=== PATIENT | male | born 1970 | race Caucasian/White ===

== ENCOUNTER → 2016-12-05 | Outpatient (CLI) | payer BC ==
[~2016-12-05] MED LIST: ACET-1256 PO; AMT50 PO; AZEL30SP NAE; CETI10TA10 PO; CNC/18 PO; IBUP-1050 PO; LEVO-371 PO; LISI-791 PO; LISI40TA PO; MULTTAB58 PO; PANT40TA PO; SUMA6INJ SC; VENL-273 PO
== END | disposition home or self-care (01) ==
LOC: C.LAB1850 17:03
PROVIDERS: ATTEND Internal Medicine Endocrinology, Diabetes & Metabolism
DX: E05.90 Thyrotoxicosis, unspecified without thyrotoxic crisis or storm (principal)

== ENCOUNTER → 2016-12-16 | Outpatient (CLI) | payer BC ==
[2016-12-16 14:33] LABS: BASO % 0.9 %; BASO ABS # 0.05 K/uL (0-0.2); COMPLETE YES; EOS % 3.1 %; HEMATOCRIT 41.3 % (42-52); IG% 0.2 %; LYMPH % 47.8 %; LYMPH ABS # 2.77 K/uL (1.2-3.4); MEAN CELL VOLUME 78.7 fL (80-100); MEAN CORPUSCULAR HEMOGLOBIN 28.8 pg (25-34); MEAN CORPUSCULAR HGB CONC 36.6 g/dl (32-36); MEAN PLATELET VOLUME 9.1 fL (7.4-10.4); MONO % 7.6 %; NEUT % 40.4 %; PLATELET COUNT 325 K/uL (130-400); RED BLOOD COUNT 5.25 M/uL (4.7-6.1)
== END | disposition home or self-care (01) ==
LOC: C.LAB1850 12:39
PROVIDERS: ATTEND Internal Medicine Endocrinology, Diabetes & Metabolism
DX: E05.90 Thyrotoxicosis, unspecified without thyrotoxic crisis or storm (principal)

== ENCOUNTER → 2017-02-15 | Outpatient (CLI) | payer BC ==
[~2017-02-15] MED LIST changes: -LEVO-371 PO; +LEVO5TAB2 PO
[2017-02-15 19:43] LABS: THYROID STIMULATING HORMONE 0.01 uIu/ml (0.300-4.500)
== END | disposition home or self-care (01) ==
LOC: C.LABPBG 15:58
PROVIDERS: ATTEND Internal Medicine Endocrinology, Diabetes & Metabolism
DX: E05.90 Thyrotoxicosis, unspecified without thyrotoxic crisis or storm (principal)

== ENCOUNTER → 2017-03-01 | Outpatient (CLI) | payer BC ==
[2017-03-01 18:08] LABS: THYROID STIMULATING HORMONE 0.63 uIu/ml (0.300-4.500)
== END | disposition home or self-care (01) ==
LOC: C.LABPBG 15:19
PROVIDERS: ATTEND Family Medicine
DX: E05.90 Thyrotoxicosis, unspecified without thyrotoxic crisis or storm (principal)

== ENCOUNTER → 2017-03-16 | Outpatient (CLI) | payer BC ==
[2017-03-16 18:03] LABS: THYROID STIMULATING HORMONE 3.15 uIu/ml (0.300-4.500)
== END | disposition home or self-care (01) ==
LOC: C.LABPBG 15:15
PROVIDERS: ATTEND Internal Medicine Endocrinology, Diabetes & Metabolism
DX: E05.90 Thyrotoxicosis, unspecified without thyrotoxic crisis or storm (principal)

== ENCOUNTER → 2017-03-20 | Outpatient (CLI) | payer BC ==
--- NOTE | 2017-03-20 09:13 | DIAGNOSTIC IMAGING REPORT ---
THYROID ULTRASONOGRAPHY CLINICAL HISTORY: E05.90 [id number] COMPARISON STUDY: No previous studies for comparison. FINDINGS: Closed the thyroid are heterogeneous in echotexture and slightly hypervascular. There are no focal masses. The right lobe measures 49 x 21 x 15 mm. The left lobe measures 55 x 18 x 16 mm. IMPRESSION: Heterogeneous thyroid echotexture, consistent with a thyroiditis. No evidence of focal thyroid mass. Electronically signed by: Juan Humphrey M.D. 03/20/2017 9:12 AM Dictated Date/Time: 03/20/2017 9:11 AM
== END | disposition home or self-care (01) ==
LOC: C.ULTR 08:55
DX: E05.90 Thyrotoxicosis, unspecified without thyrotoxic crisis or storm (principal)

== ENCOUNTER → 2017-03-30 | Outpatient (CLI) | payer BC ==
[2017-03-30 18:06] LABS: THYROID STIMULATING HORMONE 3.43 uIu/ml (0.300-4.500)
== END | disposition home or self-care (01) ==
LOC: C.LABPBG 15:12
PROVIDERS: ATTEND Physician Assistant
DX: E05.90 Thyrotoxicosis, unspecified without thyrotoxic crisis or storm (principal); E06.3 Autoimmune thyroiditis

== ENCOUNTER → 2017-04-13 | Outpatient (CLI) | payer BC ==
[~2017-04-13] MED LIST changes: -CETI10TA10 PO; -LISI-791 PO; -MULTTAB58 PO; -SUMA6INJ SC
[2017-04-13 17:45] LABS: THYROID STIMULATING HORMONE 4.49 uIu/ml (0.300-4.500)
== END | disposition home or self-care (01) ==
LOC: C.LABPBG 15:29
PROVIDERS: ATTEND Physician Assistant
DX: E05.90 Thyrotoxicosis, unspecified without thyrotoxic crisis or storm (principal)

== ENCOUNTER 2017-04-19 09:02 | Inpatient (IN) | payer BC ==
[2017-04-07 13:47] VITALS: BMI 31.0
--- NOTE | 2017-04-07 14:22 | PAT Medication Instructions ---
Service Date Apr 07, 2017. Current Home Medication List Acetaminophen (Tylenol), 1,000 MG PO PRN Amitriptyline Hcl (Elavil), 37.5 MG PO HS Azelastine Hcl-Fluticasone Pro (Dymista), 2 SPRY BRAN BID Ibuprofen (Advil), 600-800 MG PO PRN Levocetirizine Dihydrochloride (Xyzal), 1 TAB PO QAM Lisinopril (Zestril), 40 MG PO BID Methylphenidate Hcl (Concerta), 18 MG PO QAM Pantoprazole (Protonix), 40 MG PO PRN Venlafaxine Hcl (Venlafaxine Hcl Er), 225 MG PO QAM Medication Instructions For Your Scheduled Surgery - Hold the following medications 24 hours prior to surgery: Lisinopril (Zestril), 40 MG PO BID - Hold the following medications the morning of surgery: Ibuprofen (Advil), 600-800 MG PO PRN (otherwise okay to continue per surgeon) Levocetirizine Dihydrochloride (Xyzal), 1 TAB PO QAM Methylphenidate Hcl (Concerta), 18 MG PO QAM - Take the following medications the morning of surgery with a sip of water OTHERWISE NOTHING TO EAT OR DRINK AFTER MIDNIGHT: Acetaminophen (Tylenol), 1,000 MG PO PRN (okay to take as needed up to 4 hours prior to surgery) Azelastine Hcl-Fluticasone Pro (Dymista), 2 SPRY BRAN BID Venlafaxine Hcl (Venlafaxine Hcl Er), 225 MG PO QAM Pantoprazole (Protonix), 40 MG PO PRN - Take the following medications as scheduled the night before surgery: Amitriptyline Hcl (Elavil), 37.5 MG PO HS Acetaminophen (Tylenol), 1,000 MG PO PRN Ibuprofen (Advil), 600-800 MG PO PRN Azelastine Hcl-Fluticasone Pro (Dymista), 2 SPRY BRAN BID If you have any questions please call us at [phone] or [phone] or [phone]
[2017-04-07 14:42] LABS: BASO % 0.6 %; BASO ABS # 0.04 K/uL (0-0.2); COMPLETE YES; EOS % 4.4 %; IG% 0.6 %; LYMPH % 49.5 %; LYMPH ABS # 3.35 K/uL (1.2-3.4); MEAN CELL VOLUME 78.9 fL (80-100); MEAN CORPUSCULAR HEMOGLOBIN 28.1 pg (25-34); MEAN CORPUSCULAR HGB CONC 35.7 g/dl (32-36); MEAN PLATELET VOLUME 8.2 fL (7.4-10.4); MONO % 8.1 %; NEUT % 36.8 %; PLATELET COUNT 284 K/uL (130-400); RED BLOOD COUNT 5.58 M/uL (4.7-6.1); WHITE BLOOD COUNT 6.77 K/uL (4.8-10.8)
[2017-04-07 14:59] LABS: BUN/CREATININE RATIO 11.4 (10-20); CREATININE 0.98 mg/dl (0.60-1.40); POTASSIUM 4.1 mmol/L (3.5-5.1)
[2017-04-07 15:07] LABS: CALCIUM 8.9 mg/dl (8.5-10.1)
[~2017-04-19] VITALS: Ht 182.9 cm; Wt 103.1 kg
[2017-04-19] VITALS (10 sets, daily range): BP systolic 121–148; BP diastolic 74–91; PULSE 78–108; TEMP 36.7–37.1; O2SAT 93–98; Ht 182.9 cm; Wt 103.1 kg
[~2017-04-19 09:02] MED LIST changes: +CEFAZOLIN 2000 MG/60 ML D5W IV SCH; +DEXAMETHASONE SOD INJ 4 MG/ML VIAL ONE; +FENTANYL CITRATE INJ 50 MCG/1 ML 2 ML VIAL ONE; +LACTATED RINGER'S 1000ML 1,000 ML IV SCH; +LIDOCAINE HCL 2% 2 ML VIAL (20MG/ML) ONE; +MIDAZOLAM HCL 1 MG/ML 2ML VIAL ONE; +ONDANSETRON INJ 2 MG/ML 2 ML VIAL ONE; +PROPOFOL IV EMULSION 10 MG/ML 20 ML VIAL IV ONE; +ROCURONIUM BROMIDE 10 MG/ML 5 ML VIAL ONE
[2017-04-19] MEDS ORDERED: EpHEDrine SULFATE INJ 50 MG/ML AMP IV PRN (09:30)
[2017-04-19] MEDS ORDERED: ONDANSETRON INJ 2 MG/ML 2 ML VIAL IV PRN ×2 (09:30→13:45)
[2017-04-19] MEDS ORDERED: ATROPINE SULFATE 0.1 MG/ML 5ML SYR IV PRN (09:30)
--- NOTE | 2017-04-19 09:56 | History & Physical Bridge Note ---
H&P Re-Evaluation Bridge Note: I have examined the patient, reviewed the History & Physical and in the interval since the performance of the History & Physical I have noted the following changes of clinical significance: No changes noted
--- NOTE | 2017-04-19 10:00 | History and Physical ---
History & Physical Date Apr 19, 2017. Chief Complaint AUTOIMMUNE THYROIDITIS History of Present Illness The patient is a 46 year old male with complaints of AUTOIMMUNE THYROIDITIS FOR WHICH HIS ABAP DEVELOPER RECOMMENDED TOTAL THYROIDECTOMY. Past Medical/Surgical History PMH: ADHD, ALLERGIC RHINITIS, DEPRESSION, ANXIETY, GERD, HTN PSH: S/P ORAL SURGERY, FOOT SURGERY, HERNIA REPAIR, AND L SECOND TOE AMPUTATION Additional History Hepatic Disease: No Endocrine Disorder: No Kidney Disease: No Hypertension: No Heart Disease: No Bleeding Tendencies: No Infectious Diseases: No Allergies Coded Allergies: Hydrocodone (Verified Allergy, Unknown, ITCHY, 04/19/17) Oxycodone (Verified Adverse Reaction, Unknown, ACTED DRUNK, SHAKEY, ) Home Medications Scheduled Acetaminophen (Tylenol), 1,000 MG PO PRN Amitriptyline Hcl (Elavil), 37.5 MG PO HS Azelastine Hcl-Fluticasone Pro (Dymista), 2 SPRY BRAN BID Ibuprofen (Advil), 600-800 MG PO PRN Levocetirizine Dihydrochloride (Xyzal), 1 TAB PO QAM Lisinopril (Zestril), 40 MG PO BID Methylphenidate Hcl (Concerta), 18 MG PO QAM Pantoprazole (Protonix), 40 MG PO PRN Venlafaxine Hcl (Venlafaxine Hcl Er), 225 MG PO QAM Physical Examination Skin: warm/dry, no rash Eyes: normal inspection, EOMI, sclerae normal ENT: normal ENT inspection, pharynx normal Head: normocephalic, atraumatic Neck: supple, no adenopathy, trachea midline Respiratory/Chest: lungs clear, normal breath sounds, no respiratory distress Cardiovascular: regular rate, rhythm, no edema, no murmur Neurologic/Psych: no motor/sensory deficits, alert, normal reflexes, oriented x 3 Diagnosis AUTOIMMUNE THYROIDITIS Plan of Treatment TOTAL THYROIDECTOMY
[2017-04-19 10:10] LABS: THYROID STIMULATING HORMONE 3.74 uIu/ml (0.300-4.500)
[2017-04-19] MEDS ORDERED: BACITRACIN OINT 15 GM TUBE ONE (10:17)
[2017-04-19] MEDS ORDERED: THROMBIN 5000 UNITS KIT ONE (10:17)
[2017-04-19] MEDS ORDERED: LIDOCAINE/EPINEPHRINE 1% 20 ML VIAL ONE (10:17)
--- NOTE | 2017-04-19 10:18 | Discharge Instructions ---
Discharge Instructions Date of Service Apr 19, 2017. Admission Reason for Admission: Thyrotoxicosis, Autoimmune Thyroiditis Discharge Discharge Diagnosis / Problem: SAME Discharge Goals Goal(s): Therapeutic intervention Activity Recommendations Activity Limitations: as noted below 1. LIGHT ACTIVITY FOR 2WEEKS 2. KEEP INCISION DRY FOR 1WEEK . Current Hospital Diet Patient's current hospital diet: Discharge Diet Recommended Diet: Regular Diet Pending Studies Studies pending at discharge: no Medical Emergencies . Who to Call and When: Medical Emergencies: If at any time you feel your situation is an emergency, please call 911 immediately. . Non-Emergent Contact Non-Emergency issues call your: Surgeon . . "Provider Documentation" section prepared by Hermelindo Covarrubias. . VTE Core Measure Inpt VTE Proph given/why not?: SCD's
[2017-04-19] MEDS ORDERED: FENTANYL CITRATE INJ 50 MCG/1 ML 2 ML VIAL ONE (11:20)
[2017-04-19] MEDS ORDERED: DEXAMETHASONE SOD INJ 4 MG/ML VIAL ONE (11:41)
[2017-04-19] MEDS ORDERED: PROPOFOL IV EMULSION 10 MG/ML 20 ML VIAL IV ONE ×3 (11:41)
[2017-04-19] MEDS ORDERED: PHENYLEPHRINE HCL INJ 10 MG/ML VIAL ONE (11:42)
[2017-04-19] MEDS ORDERED: SUCCINYLCHOLINE CHLORIDE 20 MG/ML 10 ML VIAL IV ONE (11:42)
[2017-04-19] MEDS ORDERED: SURGICEL ABSORB HEMOSTAT 2IN X 14IN TOP ONE (13:09)
--- NOTE | 2017-04-19 13:41 | [facility] Operative Report ---
Operative Report Operative Date Apr 19, 2017. Pre-Operative Diagnosis Autoimmune Thyroiditis Post-Operative Diagnosis same Procedure(s) Performed TOTAL THYROIDECTOMY Surgeon Dr. Covarrubias [employer] Operator Surgeon(s) Erika Townsend Estimated Blood Loss 25 ml Findings EXTREMELY INFLAMED THYROID GLAND Specimens Permanent Specimens A: Right Thyroid Lobe-Double stitch is superior pole; single stitch is in the Isthmus. B: Left Thyroid Lobe-Double Stitch garcia superior pole; and single stitch garcia Ishthmus. I attest to the content of the Intraoperative Record and any orders documented therein. Any exceptions are noted below.
[2017-04-19] MEDS ORDERED: ACETAMINOPHEN 500 MG TAB PO PRN (13:45)
[2017-04-19] MEDS: FENTANYL CITRATE INJ 50 MCG/1 ML 2 ML VIAL IV PRN ×2 (14:28→14:37)
--- NOTE | 2017-04-19 15:08 | Anesthesiology Progress Note ---
Anesthesia Post Op Note Date & Time Apr 19, 2017 at 15:09 Vital Signs Pain Intensity: 5 Vital Signs Past 12 Hours Date Time Temp Pulse Resp B/P (MAP) Pulse Ox O2 Delivery O2 Flow Rate FiO2 04/19/17 15:00 101 14 152/88 99 Nasal Cannula 2 04/19/17 14:50 36.2 106 14 155/82 99 Nasal Cannula 2 04/19/17 14:40 99 15 151/81 97 Nasal Cannula 2 04/19/17 14:30 101 14 126/74 98 Mask 10 04/19/17 14:20 108 12 145/79 99 Mask 10 04/19/17 14:10 36.6 97 12 113/62 99 Mask 10 04/19/17 09:27 37. 78 18 135/86 (102) 96 Room Air Notes Mental Status: alert / awake / arousable, participated in evaluation Pt Amnestic to Procedure: Yes Nausea / Vomiting: adequately controlled Pain: adequately controlled Airway Patency, RR, SpO2: stable & adequate BP & HR: stable & adequate Hydration State: stable & adequate Anesthetic Complications: no major complications apparent
--- NOTE | 2017-04-19 15:10 | OPERATIVE REPORT ---
DATE OF OPERATION: 04/19/2017 PREOPERATIVE DIAGNOSIS: Autoimmune thyroiditis. POSTOPERATIVE DIAGNOSIS: Same. PROCEDURE: Total thyroidectomy. SURGEON: Hermelindo Covarrubias MD [employer] ACCOUNT MANAGER: Nikita. ESTIMATED BLOOD LOSS: 25 mL. FINDINGS: Severely inflamed thyroid gland with extensive fibrosis making the dissection difficult. SPECIMENS: Right and left thyroid lobes sent separately for permanent pathologic assessment. DRAINS: None. COMPLICATIONS: None. INDICATIONS FOR THE PROCEDURE: The patient is a 46-year-old male with a history of autoimmune thyroiditis with intermittent episodes of thyrotoxicosis and then hypothyroidism. His economic development manager, Dr. Dayanara Randolph had recommended total thyroidectomy. He presents for the above-mentioned procedure on an inpatient elective basis. DESCRIPTION OF PROCEDURE: After informed consent had been obtained from the patient, the patient was wheeled to the operating room and placed on the operating table in the supine position. Monitors were placed. After induction of general endotracheal anesthesia with a nerve integrity monitor endotracheal tube, the patient's head and neck were gently extended. Of note, the anesthesia team had a hard time intubating the patient and required approximately 3 intubation attempts to get the nerve integrity monitor endotracheal tube in position. A marking pen was used to outline the planned 6 cm incision in a natural skin crease 2 fingerbreadths above the level of clavicles. 3 mL of 1% lidocaine with 1:100,000 epinephrine was used to inject the skin and subcutaneous tissues overlying the planned incision site. The skin in the neck and chest were then prepped and draped in the usual sterile fashion. A #15 scalpel was then used to make the incision through the skin, subcutaneous tissue, and platysma. Subplatysmal flaps were raised superiorly to the level of the thyroid notch and inferiorly to the level of the clavicles. The median rhaphe of the strap muscle was divided using Bovie electrocautery. The strap muscles were retracted laterally and the right thyroid lobe was first addressed. The middle thyroid vein as well as superior inferior thyroid vascular pedicles were divided adjacent to the thyroid capsule using Harmonic scalpel. Dissection was carried lateral to medial with care to identify and preserve the right recurrent laryngeal nerve as well as superior and inferior parathyroid candidates. Of note, there was extensive inflammation between the thyroid gland and the surrounding soft tissues making the dissection and identification of these structures quite difficult. The thyroid gland was then at the isthmus using Harmonic scalpel. Orienting sutures were placed on the right thyroid lobectomy, which was sent off for permanent pathological assessment. The left side was then addressed in a similar fashion with similar intraoperative findings. The wound was then copiously irrigated and suctioned. Bipolar electrocautery was used to achieve adequate hemostasis. Small pieces of Surgicel followed by topical spray thrombin were placed in the bilateral tracheoesophageal grooves for added hemostatic effect. The strap muscles were then reapproximated in the midline using a simple running interlocked 3-0 Vicryl suture. The platysma was then closed with several deep 4-0 Monocryl sutures. The skin was then closed with a simple running subcuticular 5-0 Monocryl suture. The incision was cleansed and dried. Dermabond was applied to the incision. This marked the end of the case. The patient tolerated the procedure well. There were no apparent complications. The patient was extubated and transferred to recovery room in stable condition. I attest to the content of the Intraoperative Record and any orders documented therein. Any exception s are noted below.
--- NOTE | 2017-04-19 15:14 | Anesthesiology Progress Note ---
Anesthesia Progress Note Date of Service Apr 19, 2017. Progress Notes The patient was noted to have a subtle chip on his left upper front tooth post- intubation. I spoke with the patient post-operatively. He stated that he did not notice the chip, despite using his finger and his tongue. The patient was otherwise doing well s/p thyroidectomy. I spoke with the about the patient' s tooth, and I told her that an anesthesia staff member would re-assess the patient later when he was completely alert. I also stated that I would re- evaluate the patient tomorrow.
[2017-04-19] MEDS ORDERED: OXYCODONE/ACETAMINOPHEN 5-325 TAB PO PRN ×2 (16:45)
[2017-04-19] MEDS ORDERED: ACETAMINOPHEN IV 100 ML IV PRN (16:45)
--- NOTE | 2017-04-19 17:19 | ENT PROGRESS NOTE ---
DATE: 04/19/2017 SUBJECTIVE: The patient is status post total thyroidectomy for autoimmune thyroiditis. Postoperatively, he is having some pain. He does not have a gag reflex yet and so he cannot take his oral medications. He denies any numbness or paresthesias along his lips, fingers or toes. He denies any muscle spasms or cramps. OBJECTIVE: The patient is afebrile and his vital signs are stable. He has a mild gravelly hoarse voice. Of note, anesthesia had a hard time intubating the patient and required 3 intubation attempts and his hoarseness is consistent with laryngeal edema. There is no breathiness to his hoarseness. His neck examination shows no hematoma. His thyroidectomy incision is clean, dry and intact with Dermabond in place. ASSESSMENT AND PLAN: The patient is postoperative day number zero status post total thyroidectomy for autoimmune thyroiditis. He does have some mild gravelly hoarseness, which I am hoping is from airway edema from his multiple intubation attempts. There is no breathiness to his voice. I will order some IV Tylenol as the patient has some side effects from narcotics to include itching, hives, and increased anxiety. He does want me to write for some Percocet which he states caused itchiness only one time in the past and for which it went away with Benadryl. I have also prescribed some Benadryl. We will check his labs later this evening and he will most likely be discharged to home tomorrow.
[2017-04-19 19:49] LABS: CALCIUM 8.2 mg/dl (8.5-10.1); MAGNESIUM 2.1 mg/dl (1.8-2.4); PHOSPHORUS 4.4 mg/dl (2.5-4.9)
[2017-04-19] MEDS: LISINOPRIL 40 MG TAB PO SCH (21:00)
[2017-04-19] MEDS ORDERED: AMITRIPTYLINE HCL 25 MG TAB PO SCH (21:00)
[2017-04-20 01:49] LABS: CALCIUM 7.8 mg/dl (8.5-10.1); MAGNESIUM 2.2 mg/dl (1.8-2.4); PHOSPHORUS 4.6 mg/dl (2.5-4.9)
[2017-04-20] MEDS: CALCIUM 600MG + VIT D 400 IU TAB PO SCH ×3 (02:21→12:12)
[2017-04-20 03:30] VITALS: BP 109/66; PULSE 95; TEMP 36.8; O2SAT 93
[2017-04-20] MEDS ORDERED: LEVOTHYROXINE 175 MCG TAB PO SCH (06:00)
[2017-04-20 07:35] VITALS: BP 120/76; PULSE 84; TEMP 36.8; O2SAT 98
[2017-04-20 07:38] VITALS: O2SAT 98
[2017-04-20 07:41] LABS: MAGNESIUM 2.2 mg/dl (1.8-2.4)
--- NOTE | 2017-04-20 07:45 | ENT PROGRESS NOTE ---
DATE: 04/20/2017 DATE: 04/20/2017. SUBJECTIVE: Patient is postoperative day #1 status post total thyroidectomy for autoimmune thyroiditis. His pain is well controlled on Percocet and he has had no significant itching or hives with the use of Benadryl. He has had some mildly low calciums of 8.2 and 7.8 such that I started him on Os-Kamron D 2 pills 4 times daily. He has labs due at 7 this morning and depending on those labs I may recheck them again later today in 6 hours versus send him home on oral calcium and vitamin D supplementation. He denies any numbness or tingling around his lips fingers or toes. He denies any involuntary muscle spasms or cramps. He denies any voice or swallowing concerns. OBJECTIVE: The patient is afebrile and vital signs are stable. His voice is now normal this morning. Neck incision shows that it is clean, dry and intact with Dermabond in place. There is no hematoma. He does have some ecchymosis superior to his incision which is likely from the local anesthetic injection at the beginning of the case. ASSESSMENT AND PLAN: Postoperative day #1 status post total thyroidectomy for autoimmune thyroiditis. He does have some hypocalcemia, which is being replaced with oral supplementation for now. I will check his labs again at 7 this morning and determine whether or not he is suitable for discharge at that time versus whether or not he might need calcitriol as well.
--- NOTE | 2017-04-20 07:51 | Anesthesiology Progress Note ---
Anesthesia Post Op Note Date & Time Apr 20, 2017 at 07:50 Vital Signs Pain Intensity: 2.0 Vital Signs Past 12 Hours Date Time Temp Pulse Resp B/P (MAP) Pulse Ox O2 Delivery O2 Flow Rate FiO2 04/20/17 07:38 98 Room Air 04/20/17 07:35 36.8 84 16 120/76 (91) 98 Room Air 04/20/17 03:30 36.8 95 16 109/66 (80) 93 Room Air 04/20/17 00:00 Room Air 04/19/17 23:15 37.1 108 18 121/74 (90) 95 Room Air 04/19/17 20:10 95 Room Air Notes Mental Status: alert / awake / arousable, participated in evaluation Pt Amnestic to Procedure: Yes Nausea / Vomiting: adequately controlled Pain: adequately controlled Airway Patency, RR, SpO2: stable & adequate BP & HR: stable & adequate Hydration State: stable & adequate Anesthetic Complications: no major complications apparent Small chip noted on front tooth after surgery. Patient states that he does not think the tooth is chipped and that it does not look different than before surgery.
--- NOTE | 2017-04-20 08:12 | DISCHARGE SUMMARY ---
DATE OF DISCHARGE: 04/20/2017. ADMISSION DIAGNOSIS: Autoimmune thyroiditis. DISCHARGE DIAGNOSES: 1. Autoimmune thyroiditis. 2. Status post total thyroidectomy. HOSPITAL COURSE: The patient is a 46-year-old male with a history of autoimmune thyroiditis with frequent thyrotoxicosis for which his biology adjunct instructor, Dr. Dayanara Randolph, recommended total thyroidectomy. He underwent total thyroidectomy on 04/19/2017 with intraoperative findings of severe inflammation and fibrosis involving the thyroid gland. Postoperatively initially he had a mild gravely voice but then this returned to normal. This was likely due to intubation trauma as there were 3 intubation attempts done by anesthesia for the case due to significant laryngospasm. Postoperatively the patient had no problems with dysphasia. He did have mildly low calcium for which he was started on Os-Kamron D replacement. He was discharged to home on postoperative day #1 in stable condition with new medications of Synthroid 175 mcg daily, Percocet 5 mg/325 mg 1-2 tablets p.o. q. 4 hours p.r.n. with 40 tablets given, and instructions for an Os-Kamron D taper of 2 pills 4 times a day for 1 week followed by 2 pills 3 times a day for 1 week followed by 2 pills twice daily for 1 week followed by 2 pills once daily for 1 week. I will see him in my office next week where I will check a calcium level. He is to call if he develops any numbness or tingling around the lips, fingers or toes and/or involuntary muscle spasms or cramps. He is to keep his incision dry and observe light activity for 2 weeks. He was discharged in satisfactory condition.
[2017-04-20] MEDS ORDERED: METHYLPHENIDATE HCL 18 MG PO SCH (09:00)
[2017-04-20] MEDS ORDERED: VENLAFAXINE HCL XR 75 MG CAPXR PO SCH (09:00)
[2017-04-20] MEDS ORDERED: PANTOprazole SOD 40 MG TAB PO SCH (09:00)
[2017-04-20] MEDS: LISINOPRIL 40 MG TAB PO SCH (09:25)
--- NOTE | 2017-04-20 09:25 | Anesthesiology Progress Note ---
Anesthesia Progress Note Date of Service Apr 20, 2017. Progress Notes Pt is s/p thyroidectomy s/p POD #1. I spoke to the patient in regards to his L front upper tooth. He states that he does not notice any difference in his teeth. He states that the minor chip was probably old. The patient is otherwise doing well.
[2017-04-20 09:30] VITALS: BP 120/76; PULSE 84; TEMP 36.8; O2SAT 98
== END 2017-04-20 12:14 | disposition home or self-care (01) | DRG 627 ==
LOC: C.ACU 09:02 → C.MSN 09:37 → ENRESERV 15:15
PROC: 0GTK0ZZ Resection of Thyroid Gland, Open Approach (ICD-10-PCS; principal; 2017-04-19 10:45)
DX: E06.3 Autoimmune thyroiditis (principal); F90.9 Attention-deficit hyperactivity disorder, unspecified type; J30.9 Allergic rhinitis, unspecified; F32.9 Major depressive disorder, single episode, unspecified; F41.9 Anxiety disorder, unspecified; K21.9 Gastro-esophageal reflux disease without esophagitis; I10 Essential (primary) hypertension; Z89.422 Acquired absence of other left toe(s)

== ENCOUNTER → 2017-04-25 | Outpatient (CLI) | payer BC ==
[~2017-04-25] MED LIST changes: -ACET-1256 PO; -CEFAZOLIN 2000 MG/60 ML D5W IV SCH; -DEXAMETHASONE SOD INJ 4 MG/ML VIAL ONE; -FENTANYL CITRATE INJ 50 MCG/1 ML 2 ML VIAL ONE; -IBUP-1050 PO; -LACTATED RINGER'S 1000ML 1,000 ML IV SCH; -LIDOCAINE HCL 2% 2 ML VIAL (20MG/ML) ONE; -MIDAZOLAM HCL 1 MG/ML 2ML VIAL ONE; -ONDANSETRON INJ 2 MG/ML 2 ML VIAL ONE; -PROPOFOL IV EMULSION 10 MG/ML 20 ML VIAL IV ONE; -ROCURONIUM BROMIDE 10 MG/ML 5 ML VIAL ONE
[2017-04-25 17:56] LABS: CALCIUM 8.9 mg/dl (8.5-10.1)
[2017-04-25 18:13] LABS: THYROID STIMULATING HORMONE 0.382 uIu/ml (0.300-4.500)
== END | disposition home or self-care (01) ==
LOC: C.LAB 16:41
DX: E89.0 Postprocedural hypothyroidism (principal); E83.51 Hypocalcemia

== ENCOUNTER → 2017-05-29 | Outpatient (CLI) | payer BC ==
[~2017-05-29] MED LIST changes: +LEVO-371 PO; -LEVO5TAB2 PO
[2017-05-29 17:40] LABS: CALCIUM 8.3 mg/dl (8.5-10.1)
[2017-05-29 17:55] LABS: THYROID STIMULATING HORMONE 0.111 uIu/ml (0.300-4.500)
== END | disposition home or self-care (01) ==
LOC: C.LABPBG 10:56
PROVIDERS: ATTEND Family Medicine
DX: E83.51 Hypocalcemia (principal); E03.9 Hypothyroidism, unspecified

== ENCOUNTER → 2017-07-28 | Outpatient (CLI) | payer BC ==
[2017-07-28 17:12] LABS: CALCIUM 7.8 mg/dl (8.5-10.1)
[2017-07-28 17:26] LABS: THYROID STIMULATING HORMONE 2.59 uIu/ml (0.300-4.500)
== END | disposition home or self-care (01) ==
LOC: C.LABPBG 11:15
PROVIDERS: ATTEND Family Medicine
DX: E89.0 Postprocedural hypothyroidism (principal); E83.51 Hypocalcemia

== ENCOUNTER → 2017-09-15 | Outpatient (CLI) | payer BC ==
[~2017-09-15] MED LIST changes: -LEVO-371 PO; +LEVO5TAB2 PO
[2017-09-15 16:44] LABS: BASO % 0.6 %; BASO ABS # 0.05 K/uL (0-0.2); COMPLETE YES; EOS % 3.5 %; HEMATOCRIT 40.6 % (42-52); IG% 0.5 %; LYMPH % 48.8 %; LYMPH ABS # 3.76 K/uL (1.2-3.4); MEAN CELL VOLUME 81.7 fL (80-100); MEAN CORPUSCULAR HEMOGLOBIN 29.2 pg (25-34); MEAN CORPUSCULAR HGB CONC 35.7 g/dl (32-36); MEAN PLATELET VOLUME 8.8 fL (7.4-10.4); MONO % 9.4 %; NEUT % 37.2 %; PLATELET COUNT 281 K/uL (130-400); RED BLOOD COUNT 4.97 M/uL (4.7-6.1)
[2017-09-15 17:13] LABS: CALCIUM 8.6 mg/dl (8.5-10.1)
[2017-09-15 17:27] LABS: THYROID STIMULATING HORMONE 4.5 uIu/ml (0.300-4.500)
== END | disposition home or self-care (01) ==
LOC: C.LABPBG 15:10
PROVIDERS: ATTEND Family Medicine
DX: E83.51 Hypocalcemia (principal); R53.83 Other fatigue

== ENCOUNTER → 2017-12-07 | Outpatient (CLI) | payer BC | END | disposition home or self-care (01) | LOC: C.LABPBG 15:29 | PROVIDERS: ATTEND Family Medicine | DX: E06.3 Autoimmune thyroiditis (principal) ==

== ENCOUNTER → 2018-01-30 | Outpatient (CLI) | payer BC ==
[2018-01-30 16:45] LABS: BASO % 0.6 %; BASO ABS # 0.04 K/uL (0-0.2); EOS % 3.3 %; EOS ABS # 0.22 K/uL (0-0.5); HEMATOCRIT 41.8 % (42-52); HEMOGLOBIN 14.9 g/dL (14.0-18.0); IG# 0.03 K/uL (0.00-0.02); LYMPH % 44.8 %; LYMPH ABS # 2.95 K/uL (1.2-3.4); MEAN CELL VOLUME 81.2 fL (80-100); MEAN CORPUSCULAR HEMOGLOBIN 28.9 pg (25-34); MEAN CORPUSCULAR HGB CONC 35.6 g/dl (32-36); MONO % 12.8 %; MONO ABS # 0.84 K/uL (0.11-0.59); PLATELET COUNT 310 K/uL (130-400); RED CELL DISTRIBUTION WIDTH CV 12.8 % (11.5-14.5); RED CELL DISTRIBUTION WIDTH SD 38.3 fL (36.4-46.3); WHITE BLOOD COUNT 6.58 K/uL (4.8-10.8)
== END | disposition home or self-care (01) ==
LOC: C.LABPBG 15:17
PROVIDERS: ATTEND Family Medicine
DX: R53.83 Other fatigue (principal)

== ENCOUNTER → 2018-02-02 | Outpatient (CLI) | payer BC | END | disposition home or self-care (01) | LOC: C.LABPBG 15:10 | PROVIDERS: ATTEND Internal Medicine Endocrinology, Diabetes & Metabolism | DX: E89.0 Postprocedural hypothyroidism (principal) ==

== ENCOUNTER → 2018-02-12 | Outpatient (CLI) | payer BC | END | disposition home or self-care (01) | LOC: C.LAB1850 16:09 | PROVIDERS: ATTEND Internal Medicine Endocrinology, Diabetes & Metabolism | DX: E89.0 Postprocedural hypothyroidism (principal); E83.51 Hypocalcemia ==

== ENCOUNTER → 2018-06-05 | Outpatient (CLI) | payer BC | END | disposition home or self-care (01) | LOC: C.LABPBG 15:23 | PROVIDERS: ATTEND Internal Medicine Endocrinology, Diabetes & Metabolism | DX: E89.0 Postprocedural hypothyroidism (principal); E83.51 Hypocalcemia ==

== ENCOUNTER → 2018-06-26 | Outpatient (CLI) | payer BC | END | disposition home or self-care (01) | LOC: C.LABPBG 11:31 | PROVIDERS: ATTEND Family Medicine | DX: E89.0 Postprocedural hypothyroidism (principal) ==